=== PATIENT | female | born 1985 | race Caucasian/White ===

== ENCOUNTER → 2018-03-29 | Outpatient (CLI) | payer OTHER ==
--- NOTE | 2018-03-29 14:38 | Diagnostic Imaging Report ---
INDICATION: Palpable lumps in the right breast. COMPARISON: No prior mammograms are available for comparison. TECHNIQUE: Bilateral 2D and 3D diagnostic mammography was performed. The current study was also evaluated with a Computer Aided Detection (CAD) system. FINDINGS: Moderate density is identified. BB markers were placed at the medial and lateral portions of the right breast at the areas of palpable abnormality. No underlying abnormality is seen. No mass or malignant appearing microcalcifications are identified. There is an intraparenchymal lymph node in the upper and outer right breast. The left breast is unremarkable. IMPRESSION: No suspicious mammographic features are seen. Even so, directed sonographic interrogation of the areas of palpable abnormality in the right breast would be recommended and will be performed today. ACR BI-RADS Category 0: Incomplete. (Needs additional imaging evaluation). Result letter will be mailed to the patient. Note: At least 10% of breast cancer is not imaged by mammography. Dictated by: Dictated on workstation # [id number]
--- NOTE | 2018-03-29 14:39 | Diagnostic Imaging Report ---
INDICATION: Palpable lumps in the right breast. FINDINGS: Sonographic interrogation of the areas of palpable lump in the right breast was performed. No sonographic abnormality is seen. No solid or cystic mass is detected. IMPRESSION: No sonographic abnormality is identified. Continued close clinical and self breast exams are recommended to confirm stability of the palpable abnormalities. ACR BI-RADS Category 1: Negative. Result letter will be mailed to the patient. Note: At least 10% of breast cancer is not imaged by mammography. Dictated by: Dictated on workstation # [id number]
== END ==
LOC: RAD 11:52
PROVIDERS: ATTEND Nurse Practitioner Family
DX: N63.10 Unspecified lump in the right breast, unspecified quadrant (principal)
CPT/HCPCS: 76641; 77066